=== PATIENT | male | born 1975 | race Caucasian/White ===

== ENCOUNTER 2016-10-17 06:29 | Emergency (ER) | payer OTHER ==
[~2016-10-17] VITALS: Ht 180.3 cm; Wt 83.8 kg
[2016-10-17 06:33] VITALS: TEMP 36.3; Ht 180.3 cm; Wt 83.8 kg
[2016-10-17] MEDS ORDERED: XYLOCAINE 1%/SOD BICARB 20 ML VIAL INFIL STA (06:53)
[2016-10-17] MEDS ORDERED: SODIUM CHLORIDE 0.9% 1000ML 1,000 ML IV STA (06:53)
--- NOTE | 2016-10-17 06:53 | EMERGENCY ROOM VISIT NOTE ---
History Report prepared by Amor: Charlette Roque Under the Supervision of: Dr. Marcus Santos M.D. First contact with patient: 06:32 Chief Complaint: SYNCOPE Stated Complaint: BLACKOUT, SEIZURE? Nursing Triage Summary: Patient was hit in the right side of his chin with hockey puck, denies complications tomorrow, this morning woke up, asked to look at his chin and got light headed. Patient laid down in bed, felt that he blacked out briefly and notes that he had what she describes as "seizure like activity, it's almost like he was posturing" History of Present Illness The patient is a 41 year old male who presents to the Emergency Room with complaints of a sudden near syncopal episode that occurred this morning prior to arrival. The patient states that last evening he was playing hockey and was hit in the right chin with a puck. He states that a teammate put steri strips on his chin and states that he felt fine after the event. The patient states that this morning he was having his check his chin, and states that he became lightheaded. The patient's states that the patient laid down, blacked out, and then experienced seizure like activity. She states that he was slightly confused after the episode, but did not appear confused for an extended period of time. The patient states that he does have a history of becoming lightheaded with blood in the past. He denies any seizure history or heavy alcohol use. The patient states that he did not eat yet today. He additionally states that his tetanus is up to date. Source of History: patient, spouse/significant other () Onset: this morning prior to arrival Position: other (global) Quality: other (syncopal episode) Timing: other (sudden) Note: Associated Symptoms: seizure like activity, lightheaded, blacked out Review of Systems See HPI for pertinent positives & negatives. A total of 10 systems reviewed and were otherwise negative. Past Medical & Surgical Surgical Problems: (1) Kenneth teeth extracted Family History Cancer Diabetes mellitus Hypertension Social History Smoking Status: Never Smoker Smokeless Tobacco Use: No Alcohol Use: none Marital Status: Housing Status: lives with family Occupation Status: employed Current/Historical Medications No Active Prescriptions or Reported Meds Allergies Coded Allergies: Amoxicillin (Unverified Allergy, Intermediate, rash, 5/22/17) Physical Exam Vital Signs Date Time Temp Pulse Resp B/P Pulse Ox O2 Delivery O2 Flow Rate FiO2 10/17/16 08:09 46 16 120/78 99 Room Air 10/17/16 07:07 51 16 133/62 98 Room Air 10/17/16 07:06 45 10/17/16 07:06 51 16 133/62 98 Room Air 10/17/16 07:05 98 Room Air 10/17/16 07:05 98 Room Air 10/17/16 06:33 36.3 48 18 120/74 100 Room Air Physical Exam GENERAL: Patient is a healthy-appearing well-nourished HEAD: Normocephalic, 2.6 laceration to the right angle of the jaw. EYES: Ocular movements intact pupils equal and react to light OROPHARYNX mucous membranes are moist no exudates present no erythema or edema present NECK: Supple no nuchal rigidity CHEST: Good equal expansion LUNGS: Clear and equal to auscultation CARDIAC: Normal S1 and S2 ABDOMEN: Soft nontender no guarding BACK: No CVA tenderness EXTREMITIES: No pain upon palpation normal muscle strength in all groups no clubbing cyanosis or edema NEURO: Patient is following commands is answering questions appropriately. Alert and oriented x3 Cranial Nerves 2-12 grossly intact Medical Decision & Procedures ER Provider Diagnostic Interpretation: CT results as stated below per my review and radiologist interpretation: CT SCAN OF THE BRAIN WITHOUT IV CONTRAST CLINICAL HISTORY: Seizure. COMPARISON STUDY: No priors. TECHNIQUE: Unenhanced axial CT scan of the brain is performed from the vertex to the skull base. Automated dose control exposure was utilized. The examination is modestly degraded by motion artifact. CT DOSE: 537.48 mGy.cm FINDINGS: Brain parenchyma: The brain parenchyma is normal in appearance. There is no hemorrhage, mass effect, or evidence of acute territorial ischemia by CT criteria. Cobian-white matter is preserved. No extra-axial fluid collection is seen. Ventricles, sulci, cisterns: Normal in configuration. Intracranial vasculature: The visualized intracranial vasculature at the skull base is normal in appearance. Calvarium: There is no depressed calvarial fracture. Sinuses and mastoids: The visualized paranasal sinuses are clear. The mastoid air cells are well pneumatized. Orbits: The bony orbits are grossly intact. IMPRESSION: No acute intracranial abnormality. Electronically signed by: Isiah Sommer M.D. 10/17/2016 7:26 AM Dictated Date/Time: 10/17/2016 7:25 AM Laboratory Results 10/17/16 06:40 Red Blood Count 4.65, Mean Corpuscular Volume 87.3, Mean Corpuscular Hemoglobin 29.5, Mean Corpuscular Hemoglobin Concent 33.7, Mean Platelet Volume 11.8, Neutrophils (%) (Auto) 56.4, Lymphocytes (%) (Auto) 35.9, Monocytes (%) (Auto) 6.8, Eosinophils (%) (Auto) 0.4, Basophils (%) (Auto) 0.4, Neutrophils # (Auto) 4.32, Lymphocytes # (Auto) 2.75, Monocytes # (Auto) 0.52, Eosinophils # (Auto) 0.03, Basophils # (Auto) 0.03 10/17/16 06:40 Test 10/17/16 06:40 10/17/16 06:57 10/17/16 08:30 White Blood Count 7.66 K/uL (4.8-10.8) Red Blood Count 4.65 M/uL (4.7-6.1) Hemoglobin 13.7 g/dL (14.0-18.0) Hematocrit 40.6 % (42-52) Mean Corpuscular Volume 87.3 fL (80-100) Mean Corpuscular Hemoglobin 29.5 pg (25-34) Mean Corpuscular Hemoglobin Concent 33.7 g/dl (32-36) Platelet Count 153 K/uL (130-400) Mean Platelet Volume 11.8 fL (7.4-10.4) Neutrophils (%) (Auto) 56.4 % Lymphocytes (%) (Auto) 35.9 % Monocytes (%) (Auto) 6.8 % Eosinophils (%) (Auto) 0.4 % Basophils (%) (Auto) 0.4 % Neutrophils # (Auto) 4.32 K/uL (1.4-6.5) Lymphocytes # (Auto) 2.75 K/uL (1.2-3.4) Monocytes # (Auto) 0.52 K/uL (0.11-0.59) Eosinophils # (Auto) 0.03 K/uL (0-0.5) Basophils # (Auto) 0.03 K/uL (0-0.2) RDW Standard Deviation 40.2 fL (36.4-46.3) RDW Coefficient of Variation 12.5 % (11.5-14.5) Immature Granulocyte % (Auto) 0.1 % Immature Granulocyte # (Auto) 0.01 K/uL (0.00-0.02) Prothrombin Time 11.8 SECONDS (9.0-12.0) Prothromb Time International Ratio 1.1 (0.9-1.1) Activated Partial Thromboplast Time 24.5 SECONDS (21.0-31.0) Partial Thromboplastin Ratio 0.9 Anion Gap 4.0 mmol/L (3-11) Est Creatinine Clear Calc Drug Dose 92.2 ml/min Estimated GFR () 94.8 Estimated GFR (Non- 81.8 BUN/Creatinine Ratio 13.3 (10-20) Calcium Level 8.5 mg/dl (8.5-10.1) Phosphorus Level 3.4 mg/dl (2.5-4.9) Magnesium Level 2.4 mg/dl (1.8-2.4) Thyroid Stimulating Hormone (TSH) 3.100 uIu/ml (0.300-4.500) Bedside Glucose 92 mg/dl (70-99) Urine Color YELLOW Urine Appearance CLEAR (CLEAR) Urine pH 5.0 (4.5-7.5) Urine Specific [place] 1.019 (1.000-1.030) Urine Protein NEG (NEG) Urine Glucose (UA) NEG (NEG) Urine Ketones NEG (NEG) Urine Occult Blood NEG (NEG) Urine Nitrite NEG (NEG) Urine Bilirubin NEG (NEG) Urine Urobilinogen NEG (NEG) Urine Leukocyte Esterase TRACE (NEG) Urine WBC (Auto) 10-30 /hpf (0-5) Urine RBC (Auto) 0-4 /hpf (0-4) Urine Hyaline Casts (Auto) 1-5 /lpf (0-5) Urine Epithelial Cells (Auto) >30 /lpf (0-5) Urine Bacteria (Auto) NEG (NEG) Urine Renal Epithelial Cells /lpf (0-5) Labs reviewed by ED physician. Medications Administered Medications (Trade) Dose Ordered Sig/Lan Route Start Time Stop Time Status Last Admin Dose Admin Sodium Chloride (Nss 1000ml) 1,000 ml @ 999 mls/hr Q1H1M STAT IV 10/17/16 06:53 10/17/16 07:53 DC 10/17/16 06:53 999 MLS/HR Procedure Location: right chin at the angle of the mandible Total length: 2.6 cm Complexity: simple linear Verbal consent was obtained after the risks and benefits were explained, including but not limited to bleeding, scarring, infection, pain, and bone/joint /nerve damage. At this time, the risks of the procedure are less than the risks of NOT performing the procedure. A time out was taken and the correct patient and site identified. The skin was prepped with betadine. The target area was anesthetized with 8 ml of 1% lidocaine without epinephrine. Copious irrigation was performed using normal saline. The skin was re-prepped with betadine and a sterile field set. The wound was explored for foreign bodies and none found. Examination revealed no injury to deep structures such as tendons, bone, or significant blood vessels. Debridement was not performed. The wound edges were approximated using 3, 4-0 simple interrupted nylon sutures. Hemostasis and excellent approximation was achieved. Antibacterial ointment and a sterile dressing applied. Detailed wound care instructions and signs and symptoms of infection reviewed with the patient. No complications and the patient tolerated the procedure well. ED Course 0644: Past medical records reviewed. The patient was evaluated in room A3. A complete history and physical examination was performed. 0653: Ordered Lidocaine HCl 20 ml INFIL, Sodium Chloride 1000 ml @ 999 mls/hr IV. 0800: I performed the laceration repair at this time. See procedure note for further detail. I reexamined the patient and he is doing well. I discussed all the exam findings with him and I discussed the treatment plan. He verbalized complete understanding and agreement. He will be ready to go home shortly. 0821: I discussed the patient with Dr. Lemus, Neurology. She states that the patient can follow up in the office. Medical Decision Differential diagnosis: Etiologies such as infection, hypoglycemia, electrolyte abnormalities, cardiac sources, intracerebral event, trauma, toxicologic, neurologic, as well as others were entertained. This is a 41-year-old male who presents emergency department complaining of what sounds like a vasovagal episode earlier this morning. In addition after the episode the patient had seizure-like activity and had a period of confusion afterwards. The patient does have a history of becoming dizzy when he micturates. I believe this contributed along with the fact that he has any and poorly over the last 24 hours. In addition he was having a bandage on his face manipulated which may have also contributed to the episode. Based on the history the patient was sent for CAT scan of the head however this was found to be normal. He does not have an elevation in his white blood count cell count and has a normal renal profile. The laceration was repaired as above. I do believe that the patient is well enough he can be discharged home for follow-up with neurology. Patient and are in agreement with the treatment. Consults Time Called: 816 Consulting Physician: Dr. Lemus, Neurology Returned Call: [phone] discussed the patient with Dr. Lemus, Neurology. She states that the patient can follow up in the office. Impression Primary Impression: Vasovagal syncope Additional Impression: Laceration Scribe Attestation The scribe's documentation has been prepared under my direction and personally reviewed by me in its entirety. I confirm that the note above accurately reflects all work, treatment, procedures, and medical decision making performed by me. Departure Information Dispostion Home / Self-Care Prescriptions No Active Prescriptions or Reported Meds Referrals Niraj Hennessy M.D. (PCP) Rose Lemus M.D. Forms HOME CARE DOCUMENTATION FORM, IMPORTANT VISIT INFORMATION, School Instructions, Work Instructions Patient Instructions ED Laceration Sure Close, ED Scar Tips to Minimize, ED Seizure New Onset Unk Cause, ED Syncope Vasovagal, My [facility] Additional Instructions Apply Bacitracin oitment whilke sutures are in place twice a day Sutures out in 7-10 days Apply sunscreen while in sun, [place] butter and Vitamin E to minimize scarring Follow up with DR Lemus's office You have been examined and treated today on an emergency basis only. This is not a substitute for, or an effort to provide, complete comprehensive medical care. It is impossible to recognize and treat all injuries or illnesses in a single emergency department visit. It is therefore important that you follow up closely with [facility]. Call as soon as possible for an appointment. Thank you for your time and consideration. I look forward to speaking with you again soon. Please don't hesitate to call us if you have any questions. Problem Qualifiers
[2016-10-17 06:59] LABS: BASO % 0.4 %; BASO ABS # 0.03 K/uL (0-0.2); COMPLETE YES; EOS % 0.4 %; HEMATOCRIT 40.6 % (42-52); IG% 0.1 %; LYMPH % 35.9 %; LYMPH ABS # 2.75 K/uL (1.2-3.4); MEAN CELL VOLUME 87.3 fL (80-100); MEAN CORPUSCULAR HEMOGLOBIN 29.5 pg (25-34); MEAN CORPUSCULAR HGB CONC 33.7 g/dl (32-36); MEAN PLATELET VOLUME 11.8 fL (7.4-10.4); MONO % 6.8 %; NEUT % 56.4 %; PLATELET COUNT 153 K/uL (130-400); RED BLOOD COUNT 4.65 M/uL (4.7-6.1); WHITE BLOOD COUNT 7.66 K/uL (4.8-10.8)
[2016-10-17 07:05] VITALS: O2SAT 98
[2016-10-17 07:11] LABS: INR 1.1 (0.9-1.1); PARTIAL THROMBOPLASTIN RATIO 0.9; PROTHROMBIN TIME (PATIENT) 11.8 SECONDS (9.0-12.0)
[2016-10-17 07:16] LABS: BUN/CREATININE RATIO 13.3 (10-20); CALCIUM 8.5 mg/dl (8.5-10.1); CREATININE 1.1 mg/dl (0.60-1.40); MAGNESIUM 2.4 mg/dl (1.8-2.4); POTASSIUM 4.1 mmol/L (3.5-5.1)
[2016-10-17 07:27] LABS: PHOSPHORUS 3.4 mg/dl (2.5-4.9); THYROID STIMULATING HORMONE 3.1 uIu/ml (0.300-4.500)
--- NOTE | 2016-10-17 07:28 | DIAGNOSTIC IMAGING REPORT ---
CT SCAN OF THE BRAIN WITHOUT IV CONTRAST CLINICAL HISTORY: Seizure. COMPARISON STUDY: No priors. TECHNIQUE: Unenhanced axial CT scan of the brain is performed from the vertex to the skull base. Automated dose control exposure was utilized. The examination is modestly degraded by motion artifact. CT DOSE: 537.48 mGy.cm FINDINGS: Brain parenchyma: The brain parenchyma is normal in appearance. There is no hemorrhage, mass effect, or evidence of acute territorial ischemia by CT criteria. Cobian-white matter is preserved. No extra-axial fluid collection is seen. Ventricles, sulci, cisterns: Normal in configuration. Intracranial vasculature: The visualized intracranial vasculature at the skull base is normal in appearance. Calvarium: There is no depressed calvarial fracture. Sinuses and mastoids: The visualized paranasal sinuses are clear. The mastoid air cells are well pneumatized. Orbits: The bony orbits are grossly intact. IMPRESSION: No acute intracranial abnormality. Electronically signed by: Isiah Sommer M.D. 10/17/2016 7:26 AM Dictated Date/Time: 10/17/2016 7:25 AM
[2016-10-17 08:09] VITALS: BP 120/78; PULSE 46; O2SAT 99
[2016-10-17 08:54] LABS: URINE APPEARANCE CLEAR (CLEAR); URINE BILIRUBIN NEG (NEG); URINE COLOR YELLOW; URINE EPITHELIAL CELL AUTO >30 /lpf (0-5); URINE NITRITE NEG (NEG); URINE SPECIFIC GRAVITY 1.019 (1.000-1.030); UROBILINOGEN NEG (NEG)
[2016-10-17 09:01] LABS: MANUAL MICROSCOPIC REQUIRED? NO; REVIEW REQ? YES
== END 2016-10-17 08:45 | disposition home or self-care (01) ==
LOC: C.EDB 06:30 → C.EDA 08:45
DX: R55 Syncope and collapse (principal); S01.81XA Laceration without foreign body of other part of head, initial encounter; W22.8XXA Striking against or struck by other objects, initial encounter; Y93.22 Activity, ice hockey